=== PATIENT | female | born 1955 | race Two or more races ===

== ENCOUNTER 2024-12-26 13:08 | Emergency (ER) | payer OTHER ==
[~2024-12-26] VITALS: Ht 152.4 cm; Wt 62.1 kg
[2024-12-26 13:10] VITALS: TEMP 97.8
--- NOTE | 2024-12-26 13:57 | ED.PDOC ---
HPI Comments This is a 69 year old female presenting to the ED with chief complaint of high blood pressure. Patient reports that she has been experiencing more elevated than usual blood pressure since yesterday with general numbers being 200s/100s. Patient states that she has been taking her BP medication as directed, but no relief has been noted. Patient states she has also had an associated headache, concerning her due to having history of a CVA with a brain aneurysm. Patient notes that her head is now experiencing only discomfort. Patient denies any N/V, dizziness, visual changes, chest pain, or SOB. Chief Complaint: High Blood Pressure Time Seen by MD: 13:55 Reviewed Notes: Nurses Notes, Medications, Allergies Allergies: Coded Allergies: NO KNOWN ALLERGIES (Unverified , 12/26/24) Home Meds Active Scripts Acetaminophen (Tylenol Extra Strength) 500 Mg Tab, 1000 MG PO Q6HP PRN, #30 TAB Prn pain. Prov:REYNALDO RUSSO MD 12/26/24 Information Source: Patient Mode of Arrival: Ambulatory Severity: Moderate Timing: Days Duration: Since onset Prehospital treatment: None Onset: At Rest Cardiac Risk Factors: Hyperlipidemia, HTN PE Risk Factors: None History of: None Past Medical History PAST MEDICAL HISTORY: CVA, High Lipids, HTN Past Medical History (Other): Brain aneurysm Surgical History: Hysterectomy [employer] History: Denies all [employer] Hx Family History Family History: Reviewed,noncontributory to illness Social History Smoker: Non-Smoker Alcohol: Denies ETOH Use Drugs: Denies Drug Use Lives In: Home Constitutional: denies: chills, diaphoresis, fatigue, fever, malaise, sweats, weakness, others EENTM: denies: blurred vision, double vision, ear bleeding, ear discharge, ear drainage, ear pain, ear ringing, eye pain, eye redness, hearing loss, mouth pain, mouth swelling, nasal discharge, nose bleeding, nose congestion, nose pain, photophobia, tearing, throat pain, throat swelling, voice changes, others Respiratory: denies: cough, hemoptysis, orthopnea, SOB at rest, shortness of breath, SOB with excertion, stridor, wheezing, others Cardiovascular: denies: chest pain, dizzy spells, diaphoresis, Dyspnea on exertion, edema, irregular heart beat, left arm pain, lightheadedness, palpitations, PND, syncope, others Gastrointestinal: denies: abdomen distended, abdominal pain, blood streaked bowels, constipated, diarrhea, dysphagia, difficulty swallowing, hematemesis, melena, nausea, poor appetite, poor fluid intake, rectal bleeding, rectal pain, vomiting, others Genitourinary: denies: abnormal vagina bleeding, burning, dyspareunia, dysuria, flank pain, frequency, hematuria, incontinence, pain, , vagina discharge, urgency, others Neurological: reports: headache; denies: dizziness, fainting, left sided numbness, left sided weakness, numbness, paresthesia, pre-existing deficit, right sided numbness, right sided weakness, seizure, speech problems, tingling, tremors, weakness, others Musculoskeletal: denies: back pain, gout, joint pain, joint swelling, muscle pain, muscle stiffness, neck pain, others Integumetry: denies: bruises, change in color, change in hair/nails, dryness, laceration, lesions, lumps, rash, wounds, others Allergic/Immunocompromised: denies: Difficulty Healing, Frequent Infections, Hives, Itching, others Hematologic/Lymphatic: denies: anemia, blood clots, easy bleeding, easy bruising, swollen glands, others Endocrine: denies: excessive hunger, excessive sweating, excessive thirst, excessive urination, flushing, intolerance to cold, intolerance to heat, unexplained weight gain, unexplained weight loss, others Psychiatric: denies: anxiety, bipolar disorder, depression, hopeless, panic disorder, schizophrenia, sleepless, suicidal, others All Other Systems: Reviewed and Negative Physical Exam General Appearance: No Apparent Distress HEENT: Other (Pupils and Face symmetric. Moist mucous membranes.) Neck: Full Range of Motion, Normal Inspection Respiratory: Lungs Clear, No Accessory Muscle Use, No Respiratory Distress, Normal Breath Sounds Cardiovascular: No Edema, No JVD, Regular Rate/Rhythm Breast Exam: Deferred Gastrointestinal: Non Tender, Soft Genitalia: Deferred Pelvic: Deferred Rectal: Deferred Extremities: Normal inspection, Normal range of motion, Non-tender, No pedal edema Neurologic: Alert (Oriented x4), Headache, Normal Affect, Normal Mood, Other (Ambulatory. No gross focal deficit.) Cerebellar Function: NOT DONE Reflexes: NOT DONE Skin: Dry, Normal Color, Warm Lymphatic: NOT DONE Was a procedure done? Was a procedure done?: No CP Differential Dx Differential Diagnosis: N/A Differential Diagnosis: HTN Essential, HTN Accelerated, HTN Encephalopathy Comment Intracranial hemorrhage, among others X-Ray, Labs, Meds, VS Vital Signs Date Time Temp Pulse Resp B/P (MAP) Pulse Ox O2 Delivery O2 Flow Rate FiO2 12/26/24 17:11 55 18 98 Room Air 12/26/24 17:11 55 18 152/86 (108) 98 12/26/24 13:10 97.8 61 19 157/85 96 97.8 Lab Test 12/26/24 17:33 12/26/24 15:38 Range/Units Troponin I High Sensitivity 3 L < 3 L </=34 ng/L White Blood Count 7.0 4.4-10.8 10^3/uL Red Blood Count 5.16 4.0-5.20 10^6/uL Hemoglobin 12.5 12.2-16.2 g/dL Hematocrit 39.4 36.0-46.0 % Mean Corpuscular Volume 76.5 L 80.0-100.0 fL Mean Corpuscular Hemoglobin 24.2 L 28.0-32.0 pg Mean Corpuscular Hemoglobin Concent 31.7 L 32.0-36.0 g/dL Red Cell Distribution Width 20.3 H 11.8-14.3 % Platelet Count 436 140-450 10^3/uL Mean Platelet Volume 7.6 6.9-10.8 fL Neutrophils (%) (Auto) 71.3 37.0-80.0 % Lymphocytes (%) (Auto) 17.4 10.0-50.0 % Monocytes (%) (Auto) 9.4 0.0-12.0 % Eosinophils (%) (Auto) 0.7 0.0-7.0 % Basophils (%) (Auto) 1.2 0.0-2.0 % Neutrophils # (Auto) 5.0 1.6-8.6 10 ^3/uL Lymphocytes # (Auto) 1.2 0.4-5.4 10 ^3/uL Monocytes # (Auto) 0.7 0-1.3 10 ^3/uL Eosinophils # (Auto) 0 0-0.8 10 ^3/uL Basophils # (Auto) 0.1 0-0.2 10 ^3/uL Nucleated Red Blood Cells 0.0 % Sodium Level 140 136-145 mmol/L Potassium Level 4.6 3.5-5.1 mmol/L Chloride Level 104 98-107 mmol/L Carbon Dioxide Level 25 20-31 mmol/L Anion Gap 11 5-15 Blood Urea Nitrogen 20 9-23 mg/dL Creatinine 1.36 H 0.550-1.02 mg/dL Glomerular Filtration Rate Calc 42 >90 mL/min BUN/Creatinine Ratio 14.7 10.0-20.0 Serum Glucose 95 74-106 mg/dL Calcium Level 9.5 8.7-10.4 mg/dL B-Type Natriuretic Peptide 83.72 0-100 pg/mL Current Medications Medications (Trade) Dose Ordered Sig/Sharon Route Start Time Stop Time Status Last Admin Acetaminophen (Tylenol Tablet Or Capsule) 1,000 mg ONCE ONCE PO 12/26/24 15:15 12/26/24 15:16 DC 12/26/24 15:15 PROCEDURE(s): HWOCT - HEAD WITHOUT CONTRAST REASON: headache, hi bp, h/o cva and aneurysm ORDER NUMBER(s): [id number], ACCESSION NUMBER(s): [id number] CT brain without contrast CLINICAL INDICATION: headache, hi bp, h/o cva and aneurysm FINDINGS: The study was performed in a multidetector scanner. This study p erformed taking axial images from the skull base up to the vertex. Both brain and bone windows are photographed. Dose lowering techniques have been used including automated exposure control and adjustment of mA and/or KV according to patient size. No intraparenchymal or extra-axial hemorrhage. Scattered small low-density areas in the periventricular white matter probably due to chronic white matter disease No hydrocephalus or midline shift. No extra-axial fluid collections On bone windows the paranasal sinuses are pneumatized and clear IMPRESSION: 1. No acute intracranial pathology. Computed Tomographic Radiation Dosimetry Report: Total CTDI vol = 51 mGy Total DLP = 911 mGy-cm All CT scans at this medical facility are performed using dose modulation techniques as appropriate to a performed exam including the following: Automated exposure control was utilized; adjustment of the MA and/or KvP according to patient size; and use of iterative reconstruction technique. X-Ray, Labs, Meds, VS Comment 69-year-old female with a history of CVA, brain aneurysm, hypertension and dyslipidemia complaining of elevated blood pressure at home, associated with a mild headache Vitals remarkable for BP 157/85 Exam unremarkable. No focal neurologic deficit Rhythm strip independently interpreted by me: Sinus rhythm, rate 61, no ectopy. CT head unremarkable CBC unremarkable, basic metabolic panel remarkable for creatinine 1.36, BNP and troponin negative Patient treated with the following in the ED: Tylenol 1 g p.o. On re-evaluation, exam is unchanged, no new neurologic deficit. Pain has improved. Patient appears stable for discharge with close outpatient follow-up with her primary doctor for possible medication adjustment. Rx Tylenol Time of 1ST Reevaluation: 14:54 Reevaluation 1ST: Unchanged Patient Education/Counseling: Diagnosis, Treatment Family Education/Counseling: No Family Present SEPSIS Sepsis Screen Date sepsis recognized/suspect: Dec 26, 2024 Time Sepsis recognized/suspect: 1309 Recent Procedure: No On Antibiotic Therapy: No Respiratory Rate >20: No Heart Rate >90: No Temp<36 C (96.8 F) or >38.3 C: No SBP <90 or MAP <65 mmHG: No New Acute Mental Status Change: No Is the patient on CPAP, BIPAP,: No Physician Orders Electrocardigram (12/26/24 15:02) Head Without Contrast (12/26/24 15:02) Vital Signs Date Time Temp Pulse Resp B/P (MAP) Pulse Ox O2 Delivery O2 Flow Rate FiO2 12/26/24 17:11 55 18 98 Room Air 12/26/24 17:11 55 18 152/86 (108) 98 12/26/24 13:10 97.8 61 19 157/85 96 97.8 Laboratory Tests Test 12/26/24 15:38 White Blood Count 7.0 10^3/uL (4.4-10.8) Medications Medications Dose Ordered Sig/Sharon Route Start Time Stop Time Status Last Admin Dose Admin Acetaminophen 1,000 mg ONCE ONCE PO 12/26/24 15:15 12/26/24 15:16 DC 12/26/24 15:15 Departure 1 Departure Time of Disposition: 17:45 Impression: Primary Impression: Headache Qualified Codes: R51.9 - Headache, unspecified Additional Impression: Accelerated hypertension Disposition: HOME / SELF CARE / HOMELESS Condition: Stable Additional Instructions: Your blood tests for unremarkable for any acutely significant abnormality. Your head CT was unremarkable. I have enclosed a report below to show your doctor when you follow-up. I have prescribed pain medicine for your headache. Continue taking your blood pressure medication as prescribed. Follow-up with your primary doctor in 1-2 days for blood pressure recheck and possible medication adjustment. Return to ER for persistent or worsening symptoms. [facility] [id number] [place] [id number] Ph: [phone] DIAGNOSTIC IMAGING Diagnostic Imaging Report : [id number] Signed PATIENT: EMMA AGUIAR ACCT: [id number] UNIT: [id number] : 1955 LOC: ER ROOM / BED: / AGE / SEX: 69 / F ADM STATUS: REG ER SERVICE 1502 ORDERING PHYSICIAN: REYNALDO RUSSO MD PROCEDURE(s): HWOCT - HEAD WITHOUT CONTRAST REASON: headache, hi bp, h/o cva and aneurysm ORDER NUMBER(s): [id number], ACCESSION NUMBER(s): [id number] CT brain without contrast CLINICAL INDICATION: headache, hi bp, h/o cva and aneurysm FINDINGS: The study was performed in a multidetector scanner. This study performed taking axial images from the skull base up to the vertex. Both brain and bone windows are photographed. Dose lowering techniques have been used including automated exposure control and adjustment of mA and/or KV according to patient size. No intraparenchymal or extra-axial hemorrhage. Scattered small low-density areas in the periventricular white matter probably due to chronic white matter disease No hydrocephalus or midline shift. No extra-axial fluid collections On bone windows the paranasal sinuses are pneumatized and clear IMPRESSION: 1. No acute intracranial pathology. Computed Tomographic Radiation Dosimetry Report: Total CTDI vol = 51 mGy Total DLP = 911 mGy-cm All CT scans at this medical facility are performed using dose modulation techniques as appropriate to a performed exam including the following: Automated exposure control was utilized; adjustment of the MA and/or KvP according to patient size; and use of iterative reconstruction technique. e-Prescriptions Acetaminophen (Tylenol Extra Strength) 500 Mg Tab 1000 MG PO Q6HP PRN, #30 TAB Prn pain. Prov: REYNALDO RUSSO MD 12/26/24 Discharged With: Self Critical Care Note Critical Care Time?: No Stability Stability form required: No Heart Score Heart Score: Heart Score Response (Comments) Value History N/A 0 EKG N/A 0 Age N/A 0 Risk Factors N/A 0 Troponin N/A 0 Total 0 I personally scribed for REYNALDO RUSSO MD ([email or web address]) on 12/26/24 at 13:57. Electronically submitted by Calvin Elizabeth ([email or web address]). REYNALDO RUSSO MD Dec 26, 2024 13:57
[2024-12-26] MEDS: ACETAMINOPHEN 500 MG TAB or CAP PO ONE (15:15)
--- NOTE | 2024-12-26 15:36 | DVH ---
CT brain without contrast CLINICAL INDICATION: headache, hi bp, h/o cva and aneurysm FINDINGS: The study was performed in a multidetector scanner. This study performed taking axial image s from the skull base up to the vertex. Both brain and bone windows are photographed. Dose lowering techniques have been used including automated exposure control and adjustment of mA and /or KV according to patient size. No intraparenchymal or extra-axial hemorrhage. Scattered small low-density areas in the periventricul ar white matter probably due to chronic white matter disease No hydrocephalus or midline shift. No extra-axial fluid collections On bone windows the paranasal sinuses are pneumatized and clear IMPRESSION: 1. No acute intracranial pathology. Computed Tomographic Radiation Dosimetry Report: Total CTDI vol = 51 mGy Total DLP = 911 mGy-cm All C T scans at this medical facility are performed using dose modulation techniques as appropriate to a p erformed exam including the following: Automated exposure control was utilized; adjustment of the MA and/or KvP according to patient size; and use of iterative reconstruction technique.
[2024-12-26 15:55] LABS: Hematocrit 39.4 % (36.0-46.0); Hemoglobin 12.5 g/dL (12.2-16.2); Mean Corpuscular Hemoglobin 24.2 pg (28.0-32.0); Mean Corpuscular Volume 76.5 fL (80.0-100.0); Nucleated Red Blood Cells % 0.0 %
[2024-12-26 16:05] LABS: Anion Gap 11 (5-15); Carbon Dioxide 25 mmol/L (20-31); Chloride 104 mmol/L (98-107); Potassium 4.6 mmol/L (3.5-5.1); Sodium 140 mmol/L (136-145)
[2024-12-26 16:06] LABS: Calcium 9.5 mg/dL (8.7-10.4)
[2024-12-26 16:11] LABS: BUN/Creatinine Ratio 14.7 (10.0-20.0); Blood Urea Nitrogen 20 mg/dL (9-23); Glucose 95 mg/dL (74-106)
[2024-12-26 17:11] VITALS: BP 152/86; PULSE 55; RESP 18; O2SAT 98
[2024-12-26] MEDS ORDERED: ACET-1304 PO (17:47)
== END 2024-12-26 18:02 | disposition home or self-care (01) ==
LOC: ER 13:08
DX: R51.9 Headache, unspecified (principal); I10 Essential (primary) hypertension; Z86.73 Personal history of transient ischemic attack (TIA), and cerebral infarction without residual deficits; Z90.710 Acquired absence of both cervix and uterus; Z79.899 Other long term (current) drug therapy
CPT/HCPCS: 36415; 70450; 80048; 83880; 84484; 85025

== ENCOUNTER 2025-02-21 13:16 | Emergency (ER) | payer OTHER ==
[~2025-02-21] VITALS: Ht 149.9 cm; Wt 65.0 kg
[~2025-02-21 13:16] MED LIST: ACET-1304 PO
--- NOTE | 2025-02-21 14:12 | ED.PDOC ---
Meghna. trauma (HPI) HPI Comments 70 y/o F, with PMHx of HTN, HLD, and CVA presents to the ED for CC of s/p fall injury. Patient reports, having had [id number] on Thursday (02/19/25) and has now been experiencing pain to her face, back of the head and left upper arm. Reports slipping because it was raining, also because she had had some alcoholic beverages at night. Denying severe headache, no nausea or vomiting, no visual changes or dizziness. No other symptoms or modifying factors are present at this time. Chief Complaint: Fall Injury Time Seen by MD: 14:00 Reviewed notes: Nurses Notes, Medications, Allergies Allergies: Coded Allergies: NO KNOWN ALLERGIES (Unverified , 12/26/24) Home Meds Active Scripts Acetaminophen (Tylenol Extra Strength) 500 Mg Tab, 1000 MG PO Q6HP PRN, #30 TAB Prn pain. Prov:REYNALDO RUSSO MD 12/26/24 Information Source: Patient Mode of Arrival: Ambulatory Severity: Moderate Timing: Days Prehospital treatment: None Location: Face (bilateral periorbital brusing), Head Mechanism: Fall Associated signs and symtoms: None Past Medical History PAST MEDICAL HISTORY: CVA, High Lipids, HTN Surgical History: Hysterectomy MANAGER REGULATORY History: Denies all MANAGER REGULATORY Hx Family History Family History: Reviewed,noncontributory to illness Social History Smoker: Non-Smoker Alcohol: Denies ETOH Use Drugs: Denies Drug Use Lives In: Home Constitutional: denies: chills, diaphoresis, fatigue, fever, malaise, sweats, weakness, others EENTM: denies: blurred vision, double vision, ear bleeding, ear discharge, ear drainage, ear pain, ear ringing, eye pain, eye redness, hearing loss, mouth pain, mouth swelling, nasal discharge, nose bleeding, nose congestion, nose pain, photophobia, tearing, throat pain, throat swelling, voice changes, others Respiratory: denies: cough, hemoptysis, orthopnea, SOB at rest, shortness of breath, SOB with excertion, stridor, wheezing, others Cardiovascular: denies: chest pain, dizzy spells, diaphoresis, Dyspnea on exertion, edema, irregular heart beat, left arm pain, lightheadedness, palpitations, PND, syncope, others Gastrointestinal: denies: abdomen distended, abdominal pain, blood streaked bowels, constipated, diarrhea, dysphagia, difficulty swallowing, hematemesis, melena, nausea, poor appetite, poor fluid intake, rectal bleeding, rectal pain, vomiting, others Genitourinary: denies: abnormal vagina bleeding, burning, dyspareunia, dysuria, flank pain, frequency, hematuria, incontinence, pain, , vagina discharge, urgency, others Neurological: denies: dizziness, fainting, headache, left sided numbness, left sided weakness, numbness, paresthesia, pre-existing deficit, right sided numbness, right sided weakness, seizure, speech problems, tingling, tremors, weakness, others Musculoskeletal: denies: back pain, gout, joint pain, joint swelling, muscle pain, muscle stiffness, neck pain, others Integumetry: denies: bruises, change in color, change in hair/nails, dryness, laceration, lesions, lumps, rash, wounds, others Allergic/Immunocompromised: denies: Difficulty Healing, Frequent Infections, Hives, Itching, others Hematologic/Lymphatic: denies: anemia, blood clots, easy bleeding, easy bruising, swollen glands, others Endocrine: denies: excessive hunger, excessive sweating, excessive thirst, excessive urination, flushing, intolerance to cold, intolerance to heat, unexplained weight gain, unexplained weight loss, others Psychiatric: denies: anxiety, bipolar disorder, depression, hopeless, panic disorder, schizophrenia, sleepless, suicidal, others All Other Systems: Reviewed and Negative Physical Exam General Appearance: No Apparent Distress, Normal, Other (left hematoma to occipital region) HEENT: Head (left posterior parietal scalp hematoma), Other (bilateral periorbital brusing) Neck: Full Range of Motion, Non-Tender, Normal, Normal Inspection Respiratory: Chest Non-Tender, Lungs Clear, No Accessory Muscle Use, No Respir atory Distress, Normal Breath Sounds Cardiovascular: No Edema, No Murmur, No Gallop, Normal Peripheral Pulses, Regular Rate/Rhythm Breast Exam: Deferred Gastrointestinal: No Organomegaly, Non Tender, No Pulsatile Mass, Normal Bowel Sounds, Soft Genitalia: Deferred Pelvic: Deferred Rectal: Deferred Extremities: No calf tenderness, Normal capillary refill, Normal inspection, Normal range of motion, Non-tender, No pedal edema Musculoskeletal : Location: Left Extremity Location: Arm Apperance: Tenderness (no bruising, no deformity) Neurologic: Alert, captain room service II-XII nml as Tested, No Motor Deficits, Normal Affect, Normal Mood, No Sensory Deficits Cerebellar Function: Normal Reflexes: Normal Skin: Dry, Normal Color, Warm Lymphatic: No Adenopathy Was a procedure done? Was a procedure done?: No Differential Diagnosis Multiple Trauma: Fractures X-Ray, Labs, Meds, VS Vital Signs Date Time Temp Pulse Resp B/P (MAP) Pulse Ox O2 Delivery O2 Flow Rate FiO2 02/21/25 13:20 97.8 63 16 153/89 100 97.8 [place] [address] Ph: [phone] DIAGNOSTIC IMAGING Diagnostic Imaging Report : [id number] Signed PATIENT: EMMA AGUIAR ACCT: [id number] UNIT: [id number] : 1955 LOC: ER ROOM / BED: / AGE / SEX: 70 / F ADM STATUS: REG ER SERVICE 1402 ORDERING PHYSICIAN: JUNAID ENCISO MD PROCEDURE(s): HWOCT - HEAD WITHOUT CONTRAST REASON: BHT/fall, left posterior parietal scalp hematoma ORDER NUMBER(s): [id number], ACCESSION NUMBER(s): [id number] EXAM: CT HEAD WITHOUT CONTRAST INDICATION: BHT/fall, left posterior parietal scalp hematoma TECHNIQUE: CT images of the head were obtained without administration of IV contrast. CT scans at this facility use dose modulation, iterative reconstruction, and/or weight based dosing when appropriate to reduce radiation dose to as low as reasonably achievable. COMPARISON: CT HEAD WITHOUT CONTRAST on DOS: 12/26/24 FINDINGS: PARENCHYMA: No acute hemorrhage. There is no mass effect, midline shift, or herniation. Hypoattenuation along the left external capsule. Mild scattered hypoattenuation along the periventricular, centrum semiovale, and deep white matter tracts, which are nonspecific however statistically most likely represent chronic microvascular ischemic change. VENTRICLES: No hydrocephalus. EXTRA-AXIAL SPACES: No extra-axial fluid collections. OTHER: The bony structures are intact. Mild scattered paranasal sinus mucosal thickening. Small amount of right forehead soft tissue swelling. Vascular calcifications. IMPRESSION: 1. No CT evidence of an acute intracranial abnormality. ATED BY: NATAN HURTADO MD DICTATED DATE/TIME: 02/21/251454 SIGNED BY: NATAN HURTADO MD SIGNED DATE/TIME: 02/21/251454 CC: [place] [address] Ph: [phone] DIAGNOSTIC IMAGING Diagnostic Imaging Report : [id number] Signed PATIENT: EMMA AGUIAR ACCT: [id number] UNIT: [id number] : 1955 LOC: ER ROOM / BED: / AGE / SEX: 70 / F ADM STATUS: REG ER SERVICE 1403 ORDERING PHYSICIAN: JUNAID ENCISO MD PROCEDURE(s): FAC2C - MAXILLOFACIAL WITHOUT REASON: blunt facial trauma ORDER NUMBER(s): [id number], ACCESSION NUMBER(s): [id number] CT MAXILLOFACIAL WITHOUT INDICATION: blunt facial trauma TECHNIQUE: Noncontrast axial images of the facial bones are then obtained along with coronal and sagittal reformatted images. All CT scans at this facility use dose modulation, iterative reconstruction, and/or weight based dosing when appropriate to reduce radiation dose to as low as reasonably achievable. COMPARISON: CT HEAD WITHOUT CONTRAST on DOS: 02/21/25 FINDINGS: FACIAL BONES: Small fracture of the left anterior nasal bone with minimal cortical step-off (axial 91). The vomer and perpendicular plate of the ethmoid are intact. The zygomatic bones are intact. The maxilla is intact. The mandible is intact. PARANASAL SINUSES: The bony margins of the paranasal sinuses are intact. There is no air fluid level within the sinuses. Mild mucosal thickening of the right inferior maxillary sinus. ORBITS: The right and left globes are intact. The bony margins of the orbits are intact. The extraconal space is intact without inflammatory stranding of the extraconal fat. The extraocular muscles are symmetric. The intraconal space including the optic canal and nerve are symmetric. 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 IMPRESSION: 1. Small fracture of the left anterior nasal bone with minimal cortical step- off. ATED BY: NATAN HURTADO MD DICTATED DATE/TIME: 02/21/25 1459 SIGNED BY: NATAN HURTADO MD SIGNED DATE/TIME: 02/21/25 1459 CC: Time of 1ST Reevaluation: 14:30 Reevaluation 1ST: Unchanged Patient Education/Counseling: Diagnosis, Treatment Family Education/Counseling: No Family Present Departure 1 Departure Time of Disposition: 15:35 (70 y/o F, with PMHx of HTN, HLD, and CVA presents to the ED for evaluation of facial bruising, left parietal scalp hematoma after the 2 days ago. She arrives with normal mental status, does not require any labs given that she is not altered. Given the patient's age and blunt head trauma to the back of the head a CT of the head was performed which is negative for any acute intracranial hemorrhage. Patient with bilateral periorbital ecchymosis, CT of the face was performed which shows that the patient has a nasal fracture. Patient reporting pain along the posterior portion of the left arm, humerus area, however, has full range of motion and no obvious deformity. Does not require any x-ray of the upper extremities I do not suspect underlying fracture. Patient was given oral Tylenol. She is stable for discharge further outpatient management. Advised to take NSAIDs as needed for discomfort.) Impression: Primary Impression: Blunt trauma of face Additional Impressions: Traumatic periorbital ecchymosis Left parietal scalp hematoma Nasal fracture Ground-level fall Disposition: 01 HOME / SELF CARE / HOMELESS Condition: Stable Additional Instructions: You were evaluated today after a fall a couple of days ago. CT scan of your face was performed which shows a you have a nasal fracture. Please be aware that these typically heal on their own. Follow up with your outpatient primary care doctor for re-evaluation if you start to have issues breathing down the line, T scan of your head was performed which shows no evidence of any internal bleeding please take Tylenol and/or ibuprofen as needed for discomfort. Discharged With: Self Critical Care Note Critical Care Time?: No Stability Stability form required: No Heart Score Heart Score: Heart Score Response (Comments) Value History N/A 0 EKG N/A 0 Age N/A 0 Risk Factors N/A 0 Troponin N/A 0 Total 0 I personally scribed for JUNAID ENCISO MD ([facility]) on 02/21/25 at 14:12. Electronically submitted by Katalina Pino ([email or web address]). I personally scribed for JUNAID ENCISO MD ([email or web address]) on 02/21/25 at 15:18. Electronically submitted by Katalina Pino ([email or web address]). JUNAID ENCISO MD Feb 21, 2025 14:12
--- NOTE | 2025-02-21 14:57 | DVH ---
EXAM: CT HEAD WITHOUT CONTRAST INDICATION: BHT/fall, left posterior parietal scalp hematoma TECHNIQUE: CT images of the head were obtained without administration of IV contrast. CT scans at this facility use dose modulation, iterative reconstruction, and/or weight based dosing when appropriate to reduce radiation dose to as low as reasonably achievable. COMPARISON: CT HEAD WITHOUT CONTRAST on DOS: 12/26/24 FINDINGS: PARENCHYMA: No acute hemorrhage. There is no mass effect, midline shift, or herniation. Hypoattenuation along the left external capsule. Mild scattered hypoattenuation along the periventricular, centrum semiovale, and deep white matter tracts, which are nonspecific however statistically most likely represent chronic microvascular ischemic change. VENTRICLES: No hydrocephalus. EXTRA-AXIAL SPACES: No extra-axial fluid collections. OTHER: The bony structures are intact. Mild scattered paranasal sinus mucosal thickening. Small amount of right forehead soft tissue swelling. Vascular calcifications. IMPRESSION: 1. No CT evidence of an acute intracranial abnormality.
--- NOTE | 2025-02-21 15:02 | DVH ---
CT MAXILLOFACIAL WITHOUT INDICATION: blunt facial trauma TECHNIQUE: Noncontrast axial images of the facial bones are then obtained along with coronal and sagittal reformatted images. All CT scans at this facility use dose modulation, iterative reconstruction, and/or weight based dosing when appropriate to reduce radiation dose to as low as reasonably achievable. COMPARISON: CT HEAD WITHOUT CONTRAST on DOS: 02/21/25 FINDINGS: FACIAL BONES: Small fracture of the left anterior nasal bone with minimal cortical step-off (axial 91). The vomer and perpendicular plate of the ethmoid are intact. The zygomatic bones are intact. The maxilla is intact. The mandible is intact. PARANASAL SINUSES: The bony margins of the paranasal sinuses are intact. There is no air fluid level within the sinuses. Mild mucosal thickening of the right inferior maxillary sinus. ORBITS: The right and left globes are intact. The bony margins of the orbits are intact. The extraconal space is intact without inflammatory stranding of the extraconal fat. The extraocular muscles are symmetric. The intraconal space including the optic canal and nerve are symmetric. 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 IMPRESSION: 1. Small fracture of the left anterior nasal bone with minimal cortical step- off.
[2025-02-21 16:39] VITALS: BP 142/64; PULSE 64; RESP 14; O2SAT 98
[2025-02-21 16:41] VITALS: TEMP 98
[2025-02-21] MEDS: ACETAMINOPHEN 325 MG TAB PO ONE (16:41)
== END 2025-02-21 16:42 | disposition home or self-care (01) ==
LOC: ER 13:16
DX: S02.2XXA Fracture of nasal bones, initial encounter for closed fracture (principal); S00.11XA Contusion of right eyelid and periocular area, initial encounter; S00.03XA Contusion of scalp, initial encounter; I10 Essential (primary) hypertension; E78.5 Hyperlipidemia, unspecified; Z90.710 Acquired absence of both cervix and uterus; Z86.73 Personal history of transient ischemic attack (TIA), and cerebral infarction without residual deficits; W18.30XA Fall on same level, unspecified, initial encounter; Y93.89 Activity, other specified; Y92.89 Other specified places as the place of occurrence of the external cause; Y99.8 Other external cause status
CPT/HCPCS: 70450; 70486